=== PATIENT | male | born 1970 | race Caucasian/White ===

== ENCOUNTER 2017-02-01 23:54 | Inpatient (IN) | payer BC ==
[~2017-02-01] VITALS: Ht 180.3 cm; Wt 97.6 kg
[2017-02-01 23:45] VITALS: BP 139/97
[2017-02-02] MEDS ORDERED: ACETAMINOPHEN 325 MG TABLET. PO PRN (00:15)
[2017-02-02] MEDS ORDERED: ONDANSETRON PF 4 MG/2 ML VIAL. IV PRN (00:15)
[2017-02-02] MEDS: MORPHINE SULFATE 2 MG/ML DISP.SYRIN. IV PRN ×3 (00:46→08:22)
[2017-02-02] MEDS ORDERED: PRED-220 PO (00:59)
[2017-02-02] MEDS ORDERED: SUMA100T4 PO (00:59)
[2017-02-02 03:00] VITALS: BP 129/89
[2017-02-02 03:47] LABS: BASO # 0.1 x10^3/uL (0.0-0.2); BASO % 1 % (0-3); EOS % 4 % (0-3); HEMATOCRIT 39.7 % (39.0-53.0); HEMOGLOBIN 13.4 g/dL (13.0-17.5); LYMPH # 2.5 x10^3/uL (1.0-4.8); LYMPH % 26 % (24-48); MEAN CORPUSCULAR HEMOGLOBIN 31 pg (25-35); MEAN CORPUSCULAR HGB CONC 34 g/dL (31-37); MEAN CORPUSCULAR VOLUME 91 fL (79-100); MONO % 11 % (0-9); NEUT % 58 % (31-73); PLATELET COUNT 167 x10^3/uL (140-400); RED BLOOD COUNT 4.34 x10^6/uL (4.30-5.70); RED CELL DISTRIBUTION WIDTH 12.9 % (11.5-14.5); WHITE BLOOD COUNT 9.4 x10^3/uL (4.0-11.0)
[2017-02-02 03:58] LABS: CALCIUM 8.6 mg/dL (8.5-10.1); GFR 80.1
--- NOTE | 2017-02-02 05:40 | EKG ---
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
[2017-02-02 07:00] VITALS: BP 129/82
[2017-02-02] MEDS ORDERED: IV NORMAL SALINE 1000ML BAG 1,000 ML IV ONE (09:45)
[2017-02-02] MEDS ORDERED: KETOROLAC TROMETHAMINE 30 MG/ML SYRINGE. IV ONE (09:45)
--- NOTE | 2017-02-02 09:49 | PDOC1 ---
History and Physical Date of Admission Date of Admission DATE: 02/02/17 TIME: 09:40 Identification/Chief Complaint Chief Complaint chest pain Source Source: Chart review, Patient History of Present Illness History of Present Illness Mr. Lima, has new onset mid-sternal chest pain, pain with movemetn and is pleuritic, Sharp pain from left of sternum to axillae just started yesterday he has been diagnosed with Lyme disease, infection maybe 4 years ago. They describe a tick bite with erythema migrans, then seeing at doctor at the time, who explained that "Lyme disease doesn't happen in [place]" He has been to [facility] ID, Neuro and Rheum are not sure this is the correct diagnosis, so pt. follows with and ID doctor in [place] and gets Prednisone bursts for joint pain occassionally. he has recent pain in his right knee with swelling that improved with a few days of PO prednisone. he is in discomfort at rest, pain with deep inspiration, pain 6/10, but he looks miserable, he cannot reproduce pain, but occurs with movement without exertion. 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 Social History ALCOHOL: none Drugs: None Current Medications Current Medications Current Medications Morphine Sulfate 2 mg PRN Q2HR PRN IV PAIN Last administered on 02/02/17t 08:22 ; Start 02/02/17 at 00:15 Ondansetron HCl (Zofran) 4 mg PRN Q6HRS PRN IV NAUSEA/VOMITING; Start 02/02/17 at 00:15 Acetaminophen (Tylenol) 650 mg PRN Q6HRS PRN PO MILD PAIN / TEMP; Start at 00:15 Active Scripts Active Reported Sumatriptan Succinate 100 Mg Tablet 1 Tab PO PRN DAILY Prednisone 10 Mg Tablet 10 Mg PO TID PRN Allergies Allergies: Coded Allergies: No Known Allergies (Verified Allergy, Unknown, 02/02/17) ROS General: YES: Fatigue, Malaise, No: Appetite, Chills, Night Sweats, Other PSYCHOLOGICAL ROS: No: Anxiety, Behavioral Disorder, Concentration difficultie , Decreased libido, Depression, Disorientation, Hallucinations, Hostility, Irritablity, Memory difficulties, Mood Swings, Obsessive thoughts, Other, Physical abuse, Sexual abuse, Sleep disturbances, Suicidal ideation Eyes: No Blurry vision, No Decreased vision, No Double vision, No Dry eyes, No Excessive tearing, No Eye Pain, No Itchy Eyes, No Loss of vision, No Other, No Photophobia, No Scotomata, No Uses contacts, No Uses glasses HEENT: No: Epistaxis, Heacaches, Hearing change, Nasal congestion, Nasal discharge, Oral lesions, Other, Sinus pain, Sneezing, Snoring, Sore Throat, Tinnitus, Vertigo, Visual Changes, Vocal changes Respiratory: YES: Pleuritic Pain, No: Cough, Hemoptysis, Orthopnea, Other, SOB with excertion, Shortness of breath, Sputum Changes, Stridor, Tachypnea, Wheezing Cardiovascular: No Chest Pain, No Edema, No Lt Headedness, No Orthopnea, No Other, No Palpitations, No Paroxysmal Noc. Dyspnea Gastrointestinal: Yes Nausea, No Abdominal Pain, No Constipation, No Diarrhea, No Hematochezia, No Melena, No Other, No Vomiting Genitourinary: No , No , No , No , No , No , No , No Discharge, No Dysuria, No Flank Pain, No Frequency, No Hematuria, No Incontinence, No Other, No Pain, No Retention, No Urgency Musculoskeletal: Yes Joint Pain, Yes Joint Stiffness, Yes Joint Swelling ( right knee recently), No Gait Disturbance, No Muscle Pain, No Muscular Weakness, No Other, No Pain In:, No Swelling In: Neurological: No Behavorial Changes, No Bowel/Bladder ControlChng, No Confusion , No Dizziness, No Gait Disturbance, No Headaches, No Impaired Coord/balance, No Memory Loss, No Numbness/Tingling, No Other, No Seizures, No Speech Problems , No Tremors, No Visual Changes, No Weakness Skin: Yes Dry Skin, No Acne, No Eczema, No Hair Changes, No Lumps, No Mole Changes, No Mottling, No Nail Changes, No Other, No Pruritus, No Rash, No Skin Lesion Changes Physical Exam General: Alert, Oriented X3, Cooperative, mild distress, moderate distress HEENT: Atraumatic, EOMI, Mucous membr. moist/pink Lungs: Clear to auscultation, Normal air movement, Other (pain not reproducible ) Heart: S1S2, no murmurs Abdomen: Normal bowel sounds, Soft Rectal Exam: not examined Extremities: No clubbing, No cyanosis, No edema, Normal pulses Skin: No rashes, No significant lesion Neuro: Normal tone, Sensation intact Psych/Mental Status: Mood NL Vitals Vitals Vital Signs Date Time Temp Pulse Resp B/P Pulse Ox O2 Delivery O2 Flow Rate FiO2 02/02/17 08:22 18 95 Room Air 02/02/17 07:00 97.7 65 129/82 97.7 Labs Labs Laboratory Tests Test 02/02/17 03:20 White Blood Count 9.4x10^3/uL (4.0-11.0) Red Blood Count 4.34x10^6/uL (4.30-5.70) Hemoglobin 13.4g/dL (13.0-17.5) Hematocrit 39.7% (39.0-53.0) Mean Corpuscular Volume 91fL (79-100) Mean Corpuscular Hemoglobin 31pg (25-35) Mean Corpuscular Hemoglobin Concent 34g/dL (31-37) Red Cell Distribution Width 12.9% (11.5-14.5) Platelet Count 167x10^3/uL (140-400) Neutrophils (%) (Auto) 58% (31-73) Lymphocytes (%) (Auto) 26% (24-48) Monocytes (%) (Auto) 11% (0-9) Eosinophils (%) (Auto) 4% (0-3) Basophils (%) (Auto) 1% (0-3) Neutrophils # (Auto) 5.4x10^3uL (1.8-7.7) Lymphocytes # (Auto) 2.5x10^3/uL (1.0-4.8) Monocytes # (Auto) 1.1x10^3/uL (0.0-1.1) Eosinophils # (Auto) 0.3x10^3/uL (0.0-0.7) Basophils # (Auto) 0.1x10^3/uL (0.0-0.2) Sodium Level 144mmol/L (136-145) Potassium Level 4.0mmol/L (3.5-5.1) Chloride Level 109mmol/L (98-107) Carbon Dioxide Level 31mmol/L (21-32) Anion Gap 4 (6-14) Blood Urea Nitrogen 13mg/dL (8-26) Creatinine 1.0mg/dL (0.7-1.3) Estimated GFR (Cockcroft-Gault) 80.1 Glucose Level 141mg/dL (70-99) Calcium Level 8.6mg/dL (8.5-10.1) Troponin I Quantitative < 0.017ng/mL (0.000-0.055) Laboratory Tests Test 02/02/17 03:20 White Blood Count 9.4x10^3/uL (4.0-11.0) Red Blood Count 4.34x10^6/uL (4.30-5.70) Hemoglobin 13.4g/dL (13.0-17.5) Hematocrit 39.7% (39.0-53.0) Mean Corpuscular Volume 91fL (79-100) Mean Corpuscular Hemoglobin 31pg (25-35) Mean Corpuscular Hemoglobin Concent 34g/dL (31-37) Red Cell Distribution Width 12.9% (11.5-14.5) Platelet Count 167x10^3/uL (140-400) Neutrophils (%) (Auto) 58% (31-73) Lymphocytes (%) (Auto) 26% (24-48) Monocytes (%) (Auto) 11% (0-9) Eosinophils (%) (Auto) 4% (0-3) Basophils (%) (Auto) 1% (0-3) Neutrophils # (Auto) 5.4x10^3uL (1.8-7.7) Lymphocytes # (Auto) 2.5x10^3/uL (1.0-4.8) Monocytes # (Auto) 1.1x10^3/uL (0.0-1.1) Eosinophils # (Auto) 0.3x10^3/uL (0.0-0.7) Basophils # (Auto) 0.1x10^3/uL (0.0-0.2) Sodium Level 144mmol/L (136-145) Potassium Level 4.0mmol/L (3.5-5.1) Chloride Level 109mmol/L (98-107) Carbon Dioxide Level 31mmol/L (21-32) Anion Gap 4 (6-14) Blood Urea Nitrogen 13mg/dL (8-26) Creatinine 1.0mg/dL (0.7-1.3) Estimated GFR (Cockcroft-Gault) 80.1 Glucose Level 141mg/dL (70-99) Calcium Level 8.6mg/dL (8.5-10.1) Troponin I Quantitative < 0.017ng/mL (0.000-0.055) VTE Prophylaxis Ordered VTE Prophylaxis Devices: No VTE Pharmacological Prophylaxi: Yes Assessment/Plan Assessment/Plan chest pain, pleuritic, CXR report from [place] is clear CV consulted, admit was r/o chest pain, but story does not seem cardiac he has been diagnosed with Lyme disease, infection maybe 4 years ago. [facility] ID and Rheum are not sure this is the correct diagnosis, so pt. follows with and ID doctor in [place] and gets Prednisone bursts for joint pain occassionally. 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 Block, who refills Oxycodone and Valium MAGDALENA PURI MD Feb 02, 2017 09:49
[2017-02-02] MEDS: ENOXAPARIN 40 MG/0.4 ML DISP.SYRIN. SQ SCH ×2 (10:42→11:03)
[2017-02-02 11:00] VITALS: BP 130/86
[2017-02-02 11:11] LABS: CHOLESTEROL/HDL RATIO 6.1
[2017-02-02] MEDS ORDERED: SUMATRIPTAN SUCCINATE 100 MG TABLET. PO PRN (11:30)
[2017-02-02] MEDS ORDERED: PREDNISONE 20 MG TABLET PO SCH (12:00)
--- NOTE | 2017-02-02 12:30 | PDOC2 ---
CARDIAC CONSULT DATE OF CONSULT Date of Consult DATE: 02/02/17 TIME: 12:22 REASON FOR CONSULT Reason for Consult: Chest pain HISTORY OF PRESENT ILLNESS HISTORY OF PRESENT ILLNESS Reports substernal chest pain that radiated to left axilla, lasted for hours. Also with pleuritic component, and continues to be provoked with deep inspiration, but is improved. Troponin has been negative. PAST MEDICAL HISTORY Past Medical History ? chronic Lyme's FAMILY HISTORY Family History Non-contributory SOCIAL HISTORY Smoke: No (Chews snuff) CURRENT MEDICATIONS CURRENT MEDICATIONS Current Medications Medications (Trade) Dose Ordered Sig/Arnolod Route PRN Reason Start Time Stop Time Status Last Admin Dose Admin Morphine Sulfate 2 mg PRN Q2HR PRN IV PAIN 02/02/17 00:15 02/02/17 08:22 Acetaminophen (Tylenol) 650 mg PRN Q6HRS PRN PO MILD PAIN / TEMP 02/02/17 00:15 02/02/17 10:42 Ketorolac Tromethamine 30 mg 30 mg 1X ONCE IV 02/02/17 09:45 02/02/17 09:46 DC 02/02/17 10:42 Sodium Chloride (Iv Sodium Chloride 0.9% 1000ml Bag) 1,000 ml @ 175 mls/hr 1X ONCE IV 02/02/17 09:45 02/02/17 15:27 02/02/17 10:43 Enoxaparin Sodium (Lovenox 40mg Syringe) 40 mg Q24H SQ 02/02/17 10:00 02/02/17 10:42 ALLERGIES ALLERGIES: Coded Allergies: No Known Allergies (Verified Allergy, Unknown, 02/02/17) PHYSICAL EXAM General: Alert, Oriented X3, Cooperative Lungs: Clear to auscultation Heart: No murmurs, Rubs (none) Abdomen: Normal bowel sounds Extremities: No edema Skin: No rashes VITALS VITALS Vital Signs Date Time Temp Pulse Resp B/P Pulse Ox O2 Delivery O2 Flow Rate FiO2 02/02/17 11:01 18 Room Air 02/02/17 08:22 95 02/02/17 07:00 97.7 65 129/82 97.7 LABS Lab: Laboratory Tests Test 02/02/17 03:20 02/02/17 09:52 White Blood Count 9.4x10^3/uL (4.0-11.0) Red Blood Count 4.34x10^6/uL (4.30-5.70) Hemoglobin 13.4g/dL (13.0-17.5) Hematocrit 39.7% (39.0-53.0) Mean Corpuscular Volume 91fL (79-100) Mean Corpuscular Hemoglobin 31pg (25-35) Mean Corpuscular Hemoglobin Concent 34g/dL (31-37) Red Cell Distribution Width 12.9% (11.5-14.5) Platelet Count 167x10^3/uL (140-400) Neutrophils (%) (Auto) 58% (31-73) Lymphocytes (%) (Auto) 26% (24-48) Monocytes (%) (Auto) 11% (0-9) Eosinophils (%) (Auto) 4% (0-3) Basophils (%) (Auto) 1% (0-3) Neutrophils # (Auto) 5.4x10^3uL (1.8-7.7) Lymphocytes # (Auto) 2.5x10^3/uL (1.0-4.8) Monocytes # (Auto) 1.1x10^3/uL (0.0-1.1) Eosinophils # (Auto) 0.3x10^3/uL (0.0-0.7) Basophils # (Auto) 0.1x10^3/uL (0.0-0.2) Sodium Level 144mmol/L (136-145) Potassium Level 4.0mmol/L (3.5-5.1) Chloride Level 109mmol/L (98-107) Carbon Dioxide Level 31mmol/L (21-32) Anion Gap 4 (6-14) Blood Urea Nitrogen 13mg/dL (8-26) Creatinine 1.0mg/dL (0.7-1.3) Estimated GFR (Cockcroft-Gault) 80.1 Glucose Level 141mg/dL (70-99) Calcium Level 8.6mg/dL (8.5-10.1) Troponin I Quantitative < 0.017ng/mL (0.000-0.055) < 0.017ng/mL (0.000-0.055) Triglycerides Level 178mg/dL (0-150) Cholesterol Level 152mg/dL (0-200) LDL Cholesterol, Calculated 91mg/dL (0-100) VLDL Cholesterol, Calculated 36mg/dL (0-40) HDL Cholesterol 25mg/dL (40-60) Cholesterol/HDL Ratio 6.1 EKG EKG NSR, no injury pattern or old AR, no pericarditis findings ASSESSMENT/PLAN ASSESSMENT/PLAN 1) Non-cardiac chest pain 2) Pleurisy Patient is low risk for significant flow limiting CAD, therefore stress testing is not indicated. Pt is reassured and advised to avoid tobacco and follow a heart healthy lifestyle. Please reconsult for further questions. Total time with patient, more than half counseling and coordinating care on the unit, is 20 minutes. Problems: NELLY LA DO Feb 02, 2017 12:30
[2017-02-02 15:00] VITALS: BP 128/87
== END 2017-02-02 18:19 | disposition home or self-care (01) | DRG 313 ==
LOC: 2 NORTH 23:54
PROVIDERS: ADMIT Internal Medicine; ATTEND Internal Medicine
DX: R07.89 Other chest pain (principal); A69.20 Lyme disease, unspecified; R09.1 Pleurisy; R07.81 Pleurodynia; M25.461 Effusion, right knee; Z79.899 Other long term (current) drug therapy
CPT/HCPCS: 36415; 80048; 80061; 84484; 85027; 93005; J1650; J1885; J2270; J7030; J7512

== ENCOUNTER → 2021-04-13 | Outpatient (CLI) | payer BC ==
[~2021-04-13] MED LIST: PRED-220 PO; SUMA100T4 PO
--- NOTE | 2021-04-13 18:04 | CARD ---
MR#: [id number] Date of Study: 04/13/2021 Ordering Physician: REBECCA DAIGLE, Referring Physician: REBECCA DAIGLE, Tech: Lisa Bullockradhajerry, [facility] APPROVED REPORT EXAM: Two-dimensional and M-mode echocardiogram with Doppler and color Doppler. Other Information Quality : AverageHR: 63bpm INDICATION Cardiomyopathy Dilatation of Aorta 2D DIMENSIONS RVDd3.8 (2.9-3.5cm)IVSd1.3 (0.7-1.1cm) Aortic Root(2D)4.2 (2.0-3.7cm)LVDd5.4 (3.9-5.9cm) LVOT Diameter2.2 (1.8-2.4cm)PWd1.3 (0.7-1.1cm) IVSs2.1 (0.8-1.2cm)LVDs2.4 (2.5-4.0cm) FS (%) 55.2 %SV120.6 ml LVEF(%)55.5 (>50%) Aortic Valve AoV Peak Aries.103.1cm/sAoV VTI20.0cm AO Peak GR.4.3mmHgLVOT Peak Aries.99.5cm/s LVOT VTI 18.22cmAO Mean GR.2mmHg AI P 1/2 [id number] Mitral Valve MV E Vwrnayvt40.9cm/sMV DECEL LLOM370xb MV A Zhvwhjia03.6cm/sMV JYR12dg E/A Ratio1.1MVA (PHT)2.92cm2 TDI E/Lateral E'7.5E/Medial E'7.2 Pulmonary Valve PV Peak Syofoqxc43.3cm/sPV Peak Grad.4mmHg Tricuspid Valve TR P. Ndobdqzr761xc/sRAP NHAPTCZO5srQe TR Peak Gr.86xkQjMQLF84umXe Pulmonary Vein S1 Nkisyvws17.2cm/sD2 Edbgyeqc75.2cm/s PVa axhgexpr075ijdx LEFT VENTRICLE The left ventricle is normal size. There is mild concentric left ventricular hypertrophy. The left ve ntricular systolic function is normal. The ejection fraction is 50-55%. There is normal LV segmental wall motion. Transmitral Doppler flow pattern is Grade II-pseudonormal filling dynamics. RIGHT VENTRICLE The right ventricle is borderline dilated. There is normal right ventricular wall thickness. The righ t ventricular systolic function is normal. ATRIA The left atrium is borderline dilated. The right atrium size is normal. The interatrial septum is int act with no evidence for an atrial septal defect or patent foramen ovale as noted on 2-D or Doppler i maging. AORTIC VALVE The aortic valve is normal in structure and function. Doppler and Color Flow revealed trace aortic re gurgitation. There is no significant aortic valvular stenosis. Calculated aortic valve area is 3.64 c m2 with maximum pressure gradient of 5 mmHg and mean pressure gradient of 3 mmHg. MITRAL VALVE The mitral valve is normal in structure and function. There is no evidence of mitral valve prolapse. There is no mitral valve stenosis. Doppler and Color-flow revealed trace mitral regurgitation. TRICUSPID VALVE The tricuspid valve is normal in structure and function. Doppler and Color Flow revealed trace tricus pid regurgitation with an estimated PAP of 30 mmHg. There is no tricuspid valve stenosis. PULMONIC VALVE The pulmonic valve is not well visualized. Doppler and Color Flow revealed trace pulmonic valvular re gurgitation. GREAT VESSELS The aortic root is mildly enlarged measuring 4.2 cm The ascending aorta is normal in size. The IVC is normal in size and collapses >50% with inspiration. PERICARDIAL EFFUSION There is no evidence of significant pericardial effusion. Critical Notification Critical Value: No <Conclusion> The left ventricular systolic function is normal. The ejection fraction is 50-55%. There is normal LV segmental wall motion. Transmitral Doppler flow pattern is Grade II-pseudonormal filling dynamics. Trace mitral regurgitation. Trace tricuspid regurgitation with an estimated PAP of 30 mmHg. The aortic root is mildly enlarged measuring 4.2 cm There is no evidence of significant pericardial effusion. Signed by : Migel Woods, Electronically Approved : 04/13/2021 18:04:01
== END ==
LOC: ECHO 13:50
PROVIDERS: ATTEND Family Medicine
DX: I42.9 Cardiomyopathy, unspecified (principal); I77.819 Aortic ectasia, unspecified site; I51.7 Cardiomegaly
CPT/HCPCS: 93306